=== PATIENT | male | born 1985 | race African-American/Black ===

== ENCOUNTER 2017-08-31 07:39 | Emergency (ER) | payer SELFPAY ==
[~2017-08-31] VITALS: Ht 182.9 cm; Wt 86.2 kg
[~2017-08-31 07:39] MED LIST: ABILIFY10 MG PO; ATIVAN1 MG ORAL; DILANTIN100 MG PO; NAPROXEN375 MG PO; RISPERDAL2 MG PO
[2017-08-31 07:42] VITALS: BP 124/83
[2017-08-31] MEDS ORDERED: PRILOSEC10 M1 ORAL (08:23)
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
[2017-08-31 08:30] VITALS: BP 129/82
[2017-08-31] MEDS ORDERED: Dicyclomine HCl 10mg/5ml oral soln ORAL ONE (08:30)
[2017-08-31] MEDS ORDERED: Lidocaine 2% Visc 15ml soln ORAL ONE (08:30)
== END 2017-08-31 08:30 | disposition home or self-care (01) ==
LOC: EMR 08:22
DX: R10.13 Epigastric pain (principal); J45.909 Unspecified asthma, uncomplicated
CPT/HCPCS: 99282

== ENCOUNTER 2019-07-30 08:48 | Emergency (ER) | payer MEDICAID ==
[~2019-07-30] VITALS: Ht 167.6 cm; Wt 104.3 kg
[~2019-07-30 08:48] MED LIST changes: +PRILOSEC10 M1 ORAL
--- NOTE | 2019-07-30 09:05 | NUR ---
ED Nurse Note: Pt ambulated to ED d/t cough, sore throat, n/v x 2 days. Pt is AOx4, on RA. No signs of acute distress noted.
[2019-07-30 09:08] VITALS: BP 120/85
[2019-07-30] MEDS ORDERED: Albuterol/Ipratropium 3ml neb HHN ONE (09:30)
[2019-07-30] MEDS ORDERED: Guaifenesin/DM 10ml syrup ORAL ONE (09:30)
--- NOTE | 2019-07-30 09:30 | Emergency Room Report ---
History of Present Illness General Chief Complaint: Flu Like Symptoms Source: Patient, Medical Record Present Illness HPI Patient is a 33-year-old male presents after increased congestion and generalized body aches and cough. Prior history of smoking. Denies any diarrhea. Reports having some episodes of nausea and vomiting. Nonproductive cough. Smokes approximately half pack per day. Denies any prior history of lung disease. He had recently been having increased nasal congestion.Patient had onset of symptoms approximate 2 days ago. Allergies: Coded Allergies: No Known Allergies (Unverified , 08/21/12) Patient History Past Medical History: see triage record Reviewed Nursing Documentation: PMH: Agreed; PSxH: Agreed Nursing Documentation-PMH Hx Asthma: Yes Hx Gastrointestinal Problems: Yes Hx Seizures: Yes Review of Systems All Other Systems: negative except mentioned in HPI Physical Exam Vital Signs Date Time Temp Pulse Resp B/P (MAP) Pulse Ox O2 Delivery O2 Flow Rate FiO2 07/30/19 08:56 99.0 86 18 120/85 (97) 95 Room Air General Appearance: well appearing, no apparent distress, alert, GCS 15 Head: normocephalic, atraumatic ENT: hearing grossly normal, normal voice Neck: full range of motion, supple Respiratory: lungs clear, no respiratory distress, speaking full sentences Cardiovascular #1: normal inspection, regular rate, rhythm Gastrointestinal: normal inspection Musculoskeletal: normal inspection Neurologic: alert, motor strength/tone normal, 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 Differential diagnosis include was not limited to influenza, sinusitis, bronchitis among others. Patient has a benign exam and does not appear to require any imaging or laboratory testing at this time. Patient states he had recent negative chest x- ray. Does not appear to have any evidence of pneumonia at this time. Lung sounds are clear. Patient be given prescriptions for medication for symptomatic treatment. Patient does not appear to be within the window for Tamiflu. The patient is advised to follow up with primary care doctor in 1-2 days. Patient is advised to return if any worsening condition or if any changes in status that are concerning. This report is dictated with [employer] ug designer software which may occasionally lead to discrepancies related to use of this software. Last Vital Signs Date Time Temp Pulse Resp B/P (MAP) Pulse Ox O2 Delivery O2 Flow Rate FiO2 07/30/19 09:08 86 18 Room Air 07/30/19 09:08 99.0 120/85 95 Status: improved Disposition: HOME, SELF-CARE Condition: Stable Scripts Ibuprofen (Ibuprofen) 400 Mg Tablet 400 MG PO EVERY 8 HOURS, #20 TAB Prov: Daniel Boss MD 07/30/19 Guaifenesin/Dextromethorphan* (Guaifenesin Dm Syrup*) 5 Ml Syrup 5 ML ORAL Q6H PRN for FOR COUGH, #118 ML Prov: Daniel Boss MD 07/30/19 Ondansetron Odt* (ZOFRAN ODT*) 4 Mg Tab.rapdis 4 MG BC EVERY 6 HOURS PRN for Nausea & Vomiting, #10 TAB 0 Refills Prov: Daniel Boss MD 07/30/19 Daniel Boss MD Jul 30, 2019 09:30
[2019-07-30] MEDS ORDERED: guaiFENesin 100mg/5ml Liq ud ONE (09:35)
[2019-07-30] MEDS ORDERED: ONDANSETRON ODT4 MG BC (09:41)
[2019-07-30] MEDS ORDERED: GUAIFENESIN DM118 M1 ORAL (09:41)
[2019-07-30] MEDS ORDERED: IBUPROFEN400 M1 PO (09:42)
--- NOTE | 2019-07-30 09:52 | NUR ---
ED Nurse Note: RT on bedside.
[2019-07-30 10:02] VITALS: BP 122/86
--- NOTE | 2019-07-30 10:02 | NUR ---
ER DISCHARGE NOTE: Pt is cleared to be discharged per ERMD, pt is AOx4, VSS, on RA. pt was given dc and prescription instructions, pt was able to verbalize understanding, pt id band removed. pt is able to ambulate with steady gait. pt took all belongings.
== END 2019-07-30 10:02 | disposition home or self-care (01) ==
LOC: EMR 10:00
DX: J06.9 Acute upper respiratory infection, unspecified (principal); G40.909 Epilepsy, unspecified, not intractable, without status epilepticus; F17.210 Nicotine dependence, cigarettes, uncomplicated; R11.2 Nausea with vomiting, unspecified
CPT/HCPCS: 86710; Z7502; 99284; J7620